=== PATIENT | female | born 1975 | race Caucasian/White ===

== ENCOUNTER 2017-02-27 08:16 | Emergency (ER) | payer BC ==
[~2017-02-27] VITALS: Ht 152.4 cm; Wt 47.2 kg
[~2017-02-27 08:16] MED LIST: RANITIDINE HCL150 MG ORAL; SIMETHICONE80 MG ORAL
[2017-02-27 08:25] VITALS: BP 113/70
[2017-02-27] MEDS ORDERED: PROBIOTIC1 EAC5 PO (08:30)
[2017-02-27] MEDS ORDERED: PEPCID20 MG ORAL (08:48)
[2017-02-27] MEDS ORDERED: PENICILLIN V P500 MG ORAL (08:48)
[2017-02-27 09:04] VITALS: BP 120/76
--- NOTE | 2017-02-27 09:30 | Emergency Room Report ---
History of Present Illness General Chief Complaint: General Complaint Source: Patient Present Illness HPI Patient is a 41-year-old female presented after increased lip swelling to lower lip. Patient reported having felt were injected in the lower lip approximately 2 weeks previously. She denied any itching or pain. She denied taking any medications regularly. She reportedly took some Benadryl without any relief. she denied any difficulty breathing or itching. Allergies: Coded Allergies: GLUTEN (Unverified Allergy, Unknown, 08/01/15) "not good for my body" Patient History Past Medical History: see triage record Last Menstrual Period: 2 months ago Now: No Reviewed Nursing Documentation: PMH: Agreed, PSxH: Agreed Nursing Documentation-PMH Past Medical History: No Stated History Review of Systems All Other Systems: negative except mentioned in HPI Physical Exam Vital Signs Date Time Temp Pulse Resp B/P (MAP) Pulse Ox O2 Delivery O2 Flow Rate FiO2 02/27/17 08:25 97.3 16 113/70 99 Room Air 02/27/17 08:25 92 General Appearance: well appearing, no apparent distress, alert, GCS 15 Head: normocephalic, atraumatic ENT: hearing grossly normal, normal voice, other - lower lip swelling without definite abscess or fluctuance Neck: full range of motion, supple Respiratory: no respiratory distress, speaking full sentences Cardiovascular #1: normal inspection Musculoskeletal: no calf tenderness Neurologic: normal gait Psychiatric: mood/affect normal Skin: no rash Medical Decision Making Diagnostic Impression: Primary Impression: Lip swelling ER Course The patient presented for lip swelling. Differential diagnosis included was not limited to the allergic reaction, contact dermatitis, lip abscess, angioedema among others. Patient's benign exam and does not appear to require any further imaging or laboratory testing at this time. The patient does not appear to have any focal area consistent with an abscess. The patient was advised followup with her plastic surgeon. She was also advised to take Pepcid as well as Benadryl. The patient was given a prescription for penicillin as there may be some low-grade infection. The patient is advised to return if she had increased difficulty breathing dizziness lightheadedness or other concerns. Patient does not appear to require steroid treatment at this time Last Vital Signs Date Time Temp Pulse Resp B/P (MAP) Pulse Ox O2 Delivery O2 Flow Rate FiO2 02/27/17 09:04 97.3 88 18 120/76 100 Room Air Status: improved Disposition: HOME, SELF-CARE Condition: Stable Scripts Penicillin V Potassium* (PENVK*) 500 Mg Tablet 500 MG ORAL TWICE A DAY, #14 TAB Prov: Bryan Olsen 02/27/17 Famotidine (PEPCID) 20 Mg Tablet 20 MG ORAL BEDTIME, #14 TAB 0 Refills Prov: Bryan Olsen 02/27/17 Patient Instructions: Allergies Bryan Olsen Feb 27, 2017 09:30
== END 2017-02-27 09:05 | disposition home or self-care (01) ==
LOC: EMR 08:44
DX: K13.0 Diseases of lips (principal); R60.0 Localized edema
CPT/HCPCS: 99284

== ENCOUNTER 2017-05-22 09:37 | Emergency (ER) | payer BC ==
[~2017-05-22] VITALS: Ht 152.4 cm; Wt 54.4 kg
[~2017-05-22 09:37] MED LIST changes: +PENICILLIN V P500 MG ORAL; +PEPCID20 MG ORAL; +PROBIOTIC1 EAC5 PO
--- NOTE | 2017-05-22 10:05 | Emergency Room Report ---
History of Present Illness General Chief Complaint: Upper Respiratory Illness Source: Patient, Medical Record Present Illness HPI Patient presents with complaints of pain when she coughs Patient reports that recently she was diagnosed with flu she had a swab that was positive She was put on Tamiflu Over the past few days now she feels increased discomfort with the cough she has started with her throat discomfort And now has progressed to the cough and now increased discomfort with the cough Patient had previous symptoms of vomiting as well which has improved Denies any neck pain or photophobia patient did have bodyaches However is mainly concerned of the discomfort pain and burning with the cough Allergies: Coded Allergies: GLUTEN (Unverified Allergy, Unknown, 08/01/15) "not good for my body" Patient History Past Medical History: see triage record Pertinent Family History: none Last Menstrual Period: 10/10 Reviewed Nursing Documentation: PMH: Agreed, PSxH: Agreed Nursing Documentation-PMH Past Medical History: No History, Except For Review of Systems All Other Systems: negative except mentioned in HPI Physical Exam Vital Signs Date Time Temp Pulse Resp B/P (MAP) Pulse Ox O2 Delivery O2 Flow Rate FiO2 05/22/17 09:43 97.7 96 18 103/74 100 Room Air Sp02 EP Interpretation: reviewed, normal General Appearance: well appearing, no apparent distress Head: normocephalic, atraumatic Eyes: bilateral eye PERRL, bilateral eye EOMI ENT: hearing grossly normal, normal pharynx - However the patient does have rhinorrhea, TMs + canals normal, uvula midline Neck: full range of motion, supple, no meningismus, no bony tend Respiratory: lungs clear, normal breath sounds, no rhonchi, no respiratory distress, no retraction, no accessory muscle use Cardiovascular #1: normal peripheral pulses, regular rate, rhythm, no edema, no gallop, no JVD, no murmur Gastrointestinal: normal bowel sounds, non tender, soft, no mass, no organomegaly, non-distended, no guarding, no hernia, no pulsatile mass, no rebound Musculoskeletal: normal inspection Neurologic: oriented x3, responsive, eap counselor III-XII nml as tested, motor strength/ tone normal, sensory intact Psychiatric: mood/affect normal Skin: normal color, no rash, warm/dry, palpation normal Lymphatic: normal inspection, no adenopathy Medical Decision Making Diagnostic Impression: Primary Impression: Upper respiratory infection Additional Impression: Flu syndrome ER Course Multiple differentials considered Patient had x-ray mention obtain given the duration and symptoms No obvious acute pathology is observed patient appears to have discomfort specifically with the cough Treated symptomatically for this and will have close outpatient followup Chest X-Ray Diagnostic Results Chest X-Ray Diagnostic Results : Chest X-Ray Ordered: Yes # of Views/Limited/Complete: 1 View Indication: Chest Pain EP Interpretation: Yes Interpretation: no consolidation, no effusion, no pneumothorax, no acute cardiopulmonary disease Impression: No acute disease Electronically Signed by: Doe Green DO Last Vital Signs Date Time Temp Pulse Resp B/P (MAP) Pulse Ox O2 Delivery O2 Flow Rate FiO2 05/22/17 09:53 96 18 Room Air 05/22/17 09:43 97.7 103/74 100 Status: improved Disposition: HOME, SELF-CARE Condition: Improved Scripts Ibuprofen* (MOTRIN*) 600 Mg Tablet 600 MG ORAL Q8H Y for For Pain, #20 TAB 0 Refills Prov: DOE GREEN D.O. 05/22/17 Guaifenesin/Dextromethorphan (ROBITUSSIN COUGH-CHEST DM LIQ) 237 Ml Liquid 10 ML PO TID for 5 Days, ML Prov: DOE GREEN D.O. 05/22/17 Additional Instructions: Patient is provided with the discharge instructions notified to follow up with primary doctor in the next 2-3 days otherwise return to the er with any worsening symptoms. Please note that this report is being documented using Mobile Messenger technology. This can lead to erroneous entry secondary to incorrect interpretation by the dictating instrument. DOE GREEN D.O. May 22, 2017 10:05
[2017-05-22] MEDS ORDERED: IBUPROFEN600 MG ORAL (10:30)
[2017-05-22] MEDS ORDERED: ROBITUSSIN COU237 M1 PO (10:30)
[2017-05-22 10:46] VITALS: BP 103/74
[2017-05-22 10:47] VITALS: BP 103/74
--- NOTE | 2017-05-22 11:09 | Diagnostic Imaging Report ---
Indication: Shortness of breath Technique: XRAY Chest 1v Comparison: None Findings: Heart size and mediastinal contours are within normal limits. There is no focal consolidation, pneumothorax or pleural effusion. Rounded densities projecting over the bilateral lower lungs most likely represent nipple shadows. Osseous structures demonstrate no acute abnormality. Impression: No radiographic evidence of acute cardiopulmonary disease. Rounded densities projecting over the bilateral lower lungs most likely represent nipple shadows. Repeat exam with nipple markers can be obtained as clinically indicated for confirmation.
== END 2017-05-22 10:47 | disposition home or self-care (01) ==
LOC: EMR 10:00
DX: J11.1 Influenza due to unidentified influenza virus with other respiratory manifestations (principal); Z91.048 Other nonmedicinal substance allergy status
CPT/HCPCS: 71045; 99284